=== PATIENT | female | born 1945 | race Caucasian/White ===

== ENCOUNTER 2020-04-11 17:44 | Emergency (ER) | payer MEDICARE, OTHER ==
[~2020-04-11] VITALS: Ht 160 cm; Wt 64.4 kg
[~2020-04-11 17:44] MED LIST: ACYC-202 PO; ALBU8.5H8 IH; ASPI-1265 PO; BACL10TA2 PO; CARSR60C PO; CARV-50 PO; CITA-311 PO; CLOP75TA15 PO; DEXA4TAB PO; ENTE0.5T4 PO; EZET10TA48 PO; GABA-532 PO; GABA300C PO; LEVO50TA PO; LORA-269 PO; NITR0.4T51 SL; OMEP20TA23 PO; ONDA4TAB6 PO; SULF1TAB48 PO
[2020-04-11 18:41] LABS: BASOPHILS % (AUTO) 0.1 % (0-1); EOSINOPHILS # (AUTO) 0.1 X10'3 (0-0.9); EOSINOPHILS % (AUTO) 0.6 % (0-6); HEMATOCRIT 34.2 % (35.0-45.0); HEMOGLOBIN 11.1 g/dl (12.0-16.0); LYMPHOCYTES # (AUTO) 1.5 X10'3 (1.1-4.8); LYMPHOCYTES % (AUTO) 17.3 % (21-51); MEAN CORPUSCULAR HEMOGLOBIN 28.8 PG (27.0-31.0); MEAN CORPUSCULAR HGB CONC 32.4 g/dL (33.0-36.5); MEAN CORPUSCULAR VOLUME 88.7 FL (78-98); MEAN PLATELET VOLUME 6.7 FL (7.4-10.4); MONOCYTES # (AUTO) 0.6 X10'3 (0-0.9); MONOCYTES % (AUTO) 7.1 % (2-12); NEUTROPHILS # (AUTO) 6.5 X10'3 (1.8-7.7); NEUTROPHILS % (AUTO) 74.9 % (42-75); PLATELET COUNT 252 X10'3 (140-440); RED BLOOD COUNT 3.85 X10'6 (4.20-5.60); RED CELL DISTRIBUTION WIDTH 17.1 % (11.5-14.5); WHITE BLOOD COUNT 8.7 X10'3 (4.5-11.0)
[2020-04-11 18:54] LABS: ALANINE AMINOTRANSFERASE 43 U/L (12-78); ALBUMIN 3.7 G/DL (3.4-5.0); ALBUMIN/GLOBULIN RATIO 1.1 (1.1-1.5); ALKALINE PHOSPHATASE 87 IU/L (46-116); ANION GAP 10 (8-16); ASPARTATE AMINO TRANSFERASE 16 U/L (10-37); BILIRUBIN,TOTAL 0.3 MG/DL (0.1-1.0); BLOOD UREA NITROGEN 54 MG/DL (7-18); BUN/CREATININE RATIO 33.5 (6.6-38.0); CALCIUM 8.9 MG/DL (8.5-10.1); CHLORIDE 101 MMOL/L (99-107); CREATININE 1.61 MG/DL (0.40-0.90); GLUCOSE 106 MG/DL (70-104); LIPASE 275 U/L (73-393); POTASSIUM 5.3 MMOL/L (3.5-5.1); SODIUM 137 MMOL/L (135-145); TOTAL CARBON DIOXIDE 25.6 MMOL/L (24-32); eGFR 31 ML/MIN
--- NOTE | 2020-04-11 19:24 | NUR ---
TO CT VIA [facility]
[2020-04-11] MEDS ORDERED: CIPR-259 PO (20:27)
[2020-04-11] MEDS ORDERED: METR-159 PO (20:27)
[2020-04-11 23:37] LABS: OCCULT BLOOD STOOL POSITIVE (Neg)
== END 2020-04-11 20:30 | disposition home or self-care (01) ==
LOC: ER 17:44 → MERGE 17:44 → ER 20:30
DX: K52.9 Noninfective gastroenteritis and colitis, unspecified (principal); E87.6 Hypokalemia; N18.9 Chronic kidney disease, unspecified; I25.10 Atherosclerotic heart disease of native coronary artery without angina pectoris; E78.00 Pure hypercholesterolemia, unspecified; I21.9 Acute myocardial infarction, unspecified; K21.9 Gastro-esophageal reflux disease without esophagitis; E07.9 Disorder of thyroid, unspecified; F41.9 Anxiety disorder, unspecified; F32.9 Major depressive disorder, single episode, unspecified; K57.90 Diverticulosis of intestine, part unspecified, without perforation or abscess without bleeding; Z98.890 Other specified postprocedural states; Z88.8 Allergy status to other drugs, medicaments and biological substances; Z79.899 Other long term (current) drug therapy; Z79.82 Long term (current) use of aspirin; Z79.1 Long term (current) use of non-steroidal anti-inflammatories (NSAID)
CPT/HCPCS: 36415; 74176; 80053; 82272; 83690; 85025; 99284

== ENCOUNTER 2020-04-16 11:47 | Inpatient (IN) | payer MEDICARE, OTHER ==
[~2020-04-16] VITALS: Ht 160 cm; Wt 64.5 kg
[~2020-04-16 11:47] MED LIST changes: +CIPR-259 PO; +METR-159 PO
[2020-04-16] MEDS ORDERED: CefTRIAXone/D5W-Rocephin 1gm 50 ML IV ONE (12:25)
[2020-04-16 12:39] LABS: BASOPHILS % (AUTO) 0.2 % (0-1); EOSINOPHILS % (AUTO) 0.4 % (0-6); HEMOGLOBIN 8.9 g/dl (12.0-16.0); LYMPHOCYTES # (AUTO) 1.9 X10'3 (1.1-4.8); LYMPHOCYTES % (AUTO) 20.9 % (21-51); MEAN CORPUSCULAR HEMOGLOBIN 29.3 PG (27.0-31.0); MEAN CORPUSCULAR HGB CONC 32.9 g/dL (33.0-36.5); MEAN CORPUSCULAR VOLUME 89.1 FL (78-98); MEAN PLATELET VOLUME 7.2 FL (7.4-10.4); MONOCYTES # (AUTO) 0.8 X10'3 (0-0.9); MONOCYTES % (AUTO) 8.4 % (2-12); NEUTROPHILS # (AUTO) 6.5 X10'3 (1.8-7.7); NEUTROPHILS % (AUTO) 70.1 % (42-75); PLATELET COUNT 161 X10'3 (140-440); RED BLOOD COUNT 3.03 X10'6 (4.20-5.60); RED CELL DISTRIBUTION WIDTH 18.5 % (11.5-14.5); WHITE BLOOD COUNT 9.3 X10'3 (4.5-11.0)
[2020-04-16 12:52] LABS: ALANINE AMINOTRANSFERASE 23 U/L (12-78); ALBUMIN 2.8 G/DL (3.4-5.0); ALBUMIN/GLOBULIN RATIO 0.9 (1.1-1.5); ALKALINE PHOSPHATASE 80 IU/L (46-116); ANION GAP 8 (8-16); ASPARTATE AMINO TRANSFERASE 14 U/L (10-37); BILIRUBIN,TOTAL 0.4 MG/DL (0.1-1.0); BLOOD UREA NITROGEN 23 MG/DL (7-18); BUN/CREATININE RATIO 13.9 (6.6-38.0); CHLORIDE 107 MMOL/L (99-107); CREATININE 1.66 MG/DL (0.40-0.90); GLUCOSE 99 MG/DL (70-104); LIPASE 212 U/L (73-393); POTASSIUM 4.2 MMOL/L (3.5-5.1); SODIUM 141 MMOL/L (135-145); TOTAL CARBON DIOXIDE 25.8 MMOL/L (24-32); TOTAL PROTEIN 5.9 G/DL (6.4-8.2); eGFR 30 ML/MIN
[2020-04-16] MEDS ORDERED: HYDROmorphone 1 mg/ml syringe IV ONE (13:05)
[2020-04-16] MEDS ORDERED: ondansetron/PF 4mg/2ml inj IV ONE (13:05)
[2020-04-16 13:21] LABS: CLARITY,URINE TURBID (Clear); COLOR,URINE STRAW (Yellow); GLUCOSE, URINE NEGATIVE (Neg); KETONES,URINE NEGATIVE (Neg); LEUKOCYTE ESTERASE ,URINE LARGE (Neg); NITRITES, URINE POSITIVE (Neg); OCCULT BLOOD,URINE MODERATE (Neg); PROTEIN,URINE TRACE mg/dl (Neg); UROBILINOGEN,URINE 0.2 E.U/dL (0.2-1.0)
[2020-04-16 13:25] LABS: UA COLLECTION TYPE STRAIGHT CATH
[2020-04-16 13:28] LABS: BACTERIA,URINE 4+ /HPF (Neg); SQUAMOUS EPITHELIAL CELL,UR FEW /LPF (FEW); WBC,URINE TNTC /HPF (0-4)
[2020-04-16 13:30] LABS: MUCUS STRANDS NONE SEEN /LPF (Neg); RENAL CELLS, URINE FEW /HPF; TRANSITIONAL EPI CELLS,URINE FEW /HPF
[2020-04-16 13:31] LABS: RBC,URINE 0-2 /HPF (0-2)
[2020-04-16] MEDS ORDERED: HYDROcodone/acetaminophen 5mg/325mg tablet PO PRN (14:25)
[2020-04-16] MEDS ORDERED: acetaminophen 325mg tablet PO PRN ×2 (14:25)
[2020-04-16] MEDS ORDERED: magnesium 2GM in 50ml NS 50 ML IV PRN (14:25)
[2020-04-16] MEDS ORDERED: potassium CL 10mEq/100ml bag 100 ML IV PRN ×2 (14:25)
[2020-04-16] MEDS ORDERED: magnesium 4gm in 100ml NS 100 ML IV PRN (14:25)
[2020-04-16] MEDS ORDERED: magnesium hydroxide 30ml (MOM) UD suspension PO PRN ×2 (14:25→15:35)
[2020-04-16] MEDS ORDERED: magnesium Cl slow-release 64mg tablet PO PRN (14:25)
[2020-04-16] MEDS ORDERED: potassium Cl 20 mEq SR tablet PO PRN ×2 (14:25)
[2020-04-16] MEDS ORDERED: mag hydrox/Alum hydrox/simeth 30ml oral suspension PO PRN (14:25)
[2020-04-16] MEDS ORDERED: LORA-269 PO (14:29)
[2020-04-16] MEDS ORDERED: ASPI-611 PO (14:29)
[2020-04-16] MEDS ORDERED: ALBU8.5H8 INH (14:29)
[2020-04-16] MEDS ORDERED: ERGO500056 PO (14:29)
[2020-04-16] MEDS ORDERED: ACYC400T PO (14:29)
[2020-04-16] MEDS ORDERED: BACDS PO (14:29)
[2020-04-16] MEDS ORDERED: ONDA8TAB13 PO (14:29)
[2020-04-16] MEDS ORDERED: FURO20TA4 PO (14:29)
[2020-04-16] MEDS ORDERED: DILT-35 PO (14:29)
[2020-04-16] MEDS ORDERED: OXAZ15CA3 PO (14:29)
[2020-04-16] MEDS ORDERED: [UNRECOGNIZED DRUG - CODE] PO (14:29)
[2020-04-16] MEDS ORDERED: GABA300C PO (14:29)
[2020-04-16] MEDS ORDERED: CITA10TA9 PO (14:29)
[2020-04-16] MEDS ORDERED: EPLE25TA4 PO (14:29)
[2020-04-16] MEDS ORDERED: CARV-50 PO (14:29)
[2020-04-16] MEDS ORDERED: ROSU20TA31 PO (14:29)
[2020-04-16] MEDS ORDERED: OMEP-50 PO (14:29)
[2020-04-16] MEDS ORDERED: LEVO50TA8 PO (14:29)
[2020-04-16] MEDS ORDERED: BACL-11 PO (14:29)
[2020-04-16] MEDS ORDERED: CLOP75TA35 PO (14:29)
[2020-04-16] MEDS ORDERED: NITR0.4T48 SL (14:29)
[2020-04-16] MEDS: normal saline 1000ml 1,000 ML IV SCH (15:34)
[2020-04-16] MEDS ORDERED: bisacodyl 10mg suppository rectal RC PRN (15:35)
[2020-04-16] MEDS ORDERED: OXAZEpam 15mg capsule PO PRN (15:40)
[2020-04-16] MEDS ORDERED: nitroGLYCERIN 0.4mg SUBLingual tab SL PRN (15:40)
[2020-04-16] MEDS ORDERED: LORazepam 1 MG tablet PO PRN (15:40)
[2020-04-16] MEDS ORDERED: albuterol 2.5 MG/3 ML nebule NEB PRN (15:40)
[2020-04-16 17:14] VITALS: BP 123/52
--- NOTE | 2020-04-16 17:15 | NUR ---
Patient arrived to the floor mad familiar with room at this time. Call light in reach and vitals taken. Patient doing well.
--- NOTE | 2020-04-16 18:00 | NUR ---
Patient in room [facility] 356. I have received report from Mark MORIN and had the opportunity to ask questions and assume patient care.
--- NOTE | 2020-04-16 18:51 | NUR ---
Problems reprioritized. Patient report given, questions answered & plan of care reviewed with Vanessa MORIN.
[2020-04-16] MEDS: HYDROmorphone inj. 0.5 MG/0.5 ML DISP.SYRIN IV PRN ×2 (18:52→23:34)
[2020-04-16 20:00] VITALS: BP 118/41
[2020-04-16] MEDS: K and/or MAG REPLACEMENT MC SCH (20:00)
[2020-04-16] MEDS: gabapentin 300mg capsule PO SCH (20:08)
[2020-04-16] MEDS: acyclovir 200 MG capsule PO SCH (20:08)
[2020-04-16] MEDS: docusate sod 100mg capsule PO SCH (20:09)
[2020-04-16] MEDS: heparin, porcine 5000 units/ml vial SQ SCH (20:09)
[2020-04-16] MEDS: carVEDilol 12.5mg tablet PO SCH (20:09)
[2020-04-17 00:38] VITALS: BP 127/50
[2020-04-17] MEDS: HYDROmorphone inj. 0.5 MG/0.5 ML DISP.SYRIN IV PRN ×4 (03:46→19:34)
[2020-04-17] MEDS: normal saline 1000ml 1,000 ML IV SCH ×3 (03:57→20:25)
[2020-04-17 05:11] LABS: BASOPHILS % (AUTO) 0.6 % (0-1); EOSINOPHILS # (AUTO) 0.1 X10'3 (0-0.9); HEMATOCRIT 25.9 % (35.0-45.0); HEMOGLOBIN 8.4 g/dl (12.0-16.0); LYMPHOCYTES % (AUTO) 18.9 % (21-51); MEAN CORPUSCULAR HEMOGLOBIN 29.1 PG (27.0-31.0); MEAN CORPUSCULAR HGB CONC 32.6 g/dL (33.0-36.5); MEAN CORPUSCULAR VOLUME 89.3 FL (78-98); MEAN PLATELET VOLUME 7.2 FL (7.4-10.4); MONOCYTES # (AUTO) 0.4 X10'3 (0-0.9); MONOCYTES % (AUTO) 8.7 % (2-12); NEUTROPHILS # (AUTO) 3.6 X10'3 (1.8-7.7); NEUTROPHILS % (AUTO) 70.8 % (42-75); PLATELET COUNT 141 X10'3 (140-440); RED CELL DISTRIBUTION WIDTH 18.3 % (11.5-14.5); WHITE BLOOD COUNT 5.1 X10'3 (4.5-11.0)
[2020-04-17 05:25] LABS: ALANINE AMINOTRANSFERASE 24 U/L (12-78); ALBUMIN 2.5 G/DL (3.4-5.0); ALBUMIN/GLOBULIN RATIO 0.9 (1.1-1.5); ALKALINE PHOSPHATASE 75 IU/L (46-116); ANION GAP 8 (8-16); ASPARTATE AMINO TRANSFERASE 13 U/L (10-37); BILIRUBIN,TOTAL 0.3 MG/DL (0.1-1.0); BLOOD UREA NITROGEN 18 MG/DL (7-18); BUN/CREATININE RATIO 12.7 (6.6-38.0); CALCIUM 8.1 MG/DL (8.5-10.1); CHLORIDE 108 MMOL/L (99-107); CREATININE 1.42 MG/DL (0.40-0.90); GLUCOSE 102 MG/DL (70-104); POTASSIUM 3.9 MMOL/L (3.5-5.1); SODIUM 142 MMOL/L (135-145); TOTAL CARBON DIOXIDE 26.2 MMOL/L (24-32); TOTAL PROTEIN 5.4 G/DL (6.4-8.2); eGFR 36 ML/MIN
--- NOTE | 2020-04-17 06:37 | NUR ---
Problems reprioritized. Patient report given, questions answered & plan of care reviewed with Judi MORIN.
--- NOTE | 2020-04-17 06:43 | NUR ---
Patient in room [facility] 356. I have received report from Vanessa MORIN and had the opportunity to ask questions and assume patient care.
[2020-04-17 07:30] VITALS: BP 102/44
[2020-04-17] MEDS: K and/or MAG REPLACEMENT MC SCH ×2 (08:00→19:47)
[2020-04-17] MEDS: CefTRIAXone/D5W-Rocephin 1gm 50 ML IV SCH (08:23)
[2020-04-17] MEDS: levoTHYROXINE 25mcg tablet PO SCH (08:24)
[2020-04-17] MEDS: pantoprazole 40mg Tablet.DR PO SCH (08:26)
[2020-04-17] MEDS: baclofen 10mg tablet PO SCH (08:26)
[2020-04-17] MEDS: gabapentin 300mg capsule PO SCH ×3 (08:26→22:08)
[2020-04-17] MEDS: clopidogrel 75mg tablet PO SCH (08:26)
[2020-04-17] MEDS: docusate sod 100mg capsule PO SCH ×2 (08:26→19:37)
[2020-04-17] MEDS: aspirin 81mg tab.chew PO SCH (08:27)
[2020-04-17] MEDS: CITALOpram 10mg tablet PO SCH (08:31)
[2020-04-17] MEDS: atorvastatin 20mg tablet PO SCH (08:31)
[2020-04-17] MEDS: diltiazem CD 120mg capsule (once-daily) PO SCH (08:32)
[2020-04-17] MEDS: sulfamethoxazole/trimethoprim DS (800/160mg) tablet PO SCH (08:32)
[2020-04-17] MEDS: carVEDilol 12.5mg tablet PO SCH ×2 (08:32→19:37)
[2020-04-17] MEDS: acyclovir 200 MG capsule PO SCH ×2 (08:33→19:37)
[2020-04-17] MEDS: furosemide 20MG tablet PO SCH (08:34)
[2020-04-17] MEDS: heparin, porcine 5000 units/ml vial SQ SCH ×2 (08:35→19:41)
[2020-04-17] MEDS: LAMIVUDINE PO SCH (10:02)
[2020-04-17 12:00] VITALS: BP 123/64
[2020-04-17] MEDS ORDERED: barium sulfate 450ml oral suspension PO ONE (12:35)
[2020-04-17 18:00] VITALS: BP 111/90
--- NOTE | 2020-04-17 18:30 | NUR ---
Patient in room [facility] 356. I have received report from ASHA MORIN and had the opportunity to ask questions and assume patient care.
[2020-04-17] MEDS: HYDROcodone/acetaminophen 10/325mg tab PO PRN (18:44)
[2020-04-17] MEDS ORDERED: barium sulfate 450ml oral suspension PO SCH (21:00)
[2020-04-17] MEDS: ondansetron/PF 4mg/2ml inj IV PRN (22:06)
[2020-04-18] VITALS: BP 109/56
[2020-04-18] MEDS: normal saline 1000ml 1,000 ML IV SCH ×2 (01:55→14:05)
[2020-04-18 05:20] LABS: ALANINE AMINOTRANSFERASE 27 U/L (12-78); ALBUMIN 2.5 G/DL (3.4-5.0); ALBUMIN/GLOBULIN RATIO 0.9 (1.1-1.5); ALKALINE PHOSPHATASE 79 IU/L (46-116); ANION GAP 8 (8-16); ASPARTATE AMINO TRANSFERASE 15 U/L (10-37); BILIRUBIN,TOTAL 0.2 MG/DL (0.1-1.0); BLOOD UREA NITROGEN 19 MG/DL (7-18); BUN/CREATININE RATIO 12.7 (6.6-38.0); CALCIUM 7.6 MG/DL (8.5-10.1); CHLORIDE 105 MMOL/L (99-107); GLUCOSE 105 MG/DL (70-104); MAGNESIUM 1.7 MG/DL (1.5-2.4); SODIUM 137 MMOL/L (135-145); TOTAL CARBON DIOXIDE 23.8 MMOL/L (24-32); TOTAL PROTEIN 5.4 G/DL (6.4-8.2); eGFR 34 ML/MIN
[2020-04-18 05:29] LABS: BASOPHILS % (AUTO) 0.4 % (0-1); EOSINOPHILS % (AUTO) 0.7 % (0-6); HEMATOCRIT 25.9 % (35.0-45.0); HEMOGLOBIN 8.6 g/dl (12.0-16.0); LYMPHOCYTES # (AUTO) 0.7 X10'3 (1.1-4.8); LYMPHOCYTES % (AUTO) 16.9 % (21-51); MEAN CORPUSCULAR HEMOGLOBIN 29.7 PG (27.0-31.0); MEAN CORPUSCULAR HGB CONC 33.1 g/dL (33.0-36.5); MEAN CORPUSCULAR VOLUME 89.8 FL (78-98); MEAN PLATELET VOLUME 7.2 FL (7.4-10.4); MONOCYTES # (AUTO) 0.4 X10'3 (0-0.9); MONOCYTES % (AUTO) 10.2 % (2-12); NEUTROPHILS # (AUTO) 2.8 X10'3 (1.8-7.7); NEUTROPHILS % (AUTO) 71.8 % (42-75); PLATELET COUNT 134 X10'3 (140-440); RED BLOOD COUNT 2.88 X10'6 (4.20-5.60); RED CELL DISTRIBUTION WIDTH 18.6 % (11.5-14.5); WHITE BLOOD COUNT 3.9 X10'3 (4.5-11.0)
--- NOTE | 2020-04-18 06:30 | NUR ---
Problems reprioritized. Patient report given, questions answered & plan of care reviewed with ASHA MORIN.
[2020-04-18 06:41] LABS: ANISOCYTOSIS 2+; PLATELET ESTIMATE DECREASED
--- NOTE | 2020-04-18 06:48 | NUR ---
Patient in room [facility] 356. I have received report from Zainab Lamb RN and had the opportunity to ask questions and assume patient care.
[2020-04-18] MEDS ORDERED: barium sulfate 450ml oral suspension PO ONE (07:00)
[2020-04-18] MEDS: CefTRIAXone/D5W-Rocephin 1gm 50 ML IV SCH (07:32)
[2020-04-18] MEDS: levoTHYROXINE 25mcg tablet PO SCH (07:32)
[2020-04-18 08:00] VITALS: BP 127/63
[2020-04-18] MEDS: heparin, porcine 5000 units/ml vial SQ SCH ×2 (08:00→20:39)
[2020-04-18] MEDS: K and/or MAG REPLACEMENT MC SCH ×2 (08:00→20:00)
[2020-04-18] MEDS: LAMIVUDINE PO SCH (08:34)
[2020-04-18] MEDS: docusate sod 100mg capsule PO SCH ×2 (08:34→20:38)
[2020-04-18] MEDS: atorvastatin 20mg tablet PO SCH (08:34)
[2020-04-18] MEDS: gabapentin 300mg capsule PO SCH ×3 (08:34→20:38)
[2020-04-18] MEDS: CITALOpram 10mg tablet PO SCH (08:34)
[2020-04-18] MEDS: pantoprazole 40mg Tablet.DR PO SCH (08:35)
[2020-04-18] MEDS: baclofen 10mg tablet PO SCH (08:35)
[2020-04-18] MEDS: acyclovir 200 MG capsule PO SCH ×2 (08:35→20:38)
[2020-04-18] MEDS: aspirin 81mg tab.chew PO SCH (08:35)
[2020-04-18] MEDS: clopidogrel 75mg tablet PO SCH (08:35)
[2020-04-18] MEDS: furosemide 20MG tablet PO SCH (08:36)
[2020-04-18] MEDS: diltiazem CD 120mg capsule (once-daily) PO SCH (08:36)
[2020-04-18] MEDS: carVEDilol 12.5mg tablet PO SCH ×2 (08:36→20:38)
[2020-04-18] MEDS: ondansetron/PF 4mg/2ml inj IV PRN (08:37)
[2020-04-18] MEDS: HYDROmorphone inj. 0.5 MG/0.5 ML DISP.SYRIN IV PRN ×3 (08:39→20:36)
[2020-04-18] MEDS ORDERED: barium sulfate 450ml oral suspension PO PRN (09:00)
[2020-04-18 12:00] VITALS: BP 108/38
--- NOTE | 2020-04-18 12:51 | NUR ---
PAGER ID: [phone] MESSAGE: Livia Tayloru [id number] - FYI- Pt's Cat scan results are available. Thank you. Judi [phone]
[2020-04-18] MEDS: metroNIDAZOLE-Flagyl 500mg/NS 100 ML IV SCH ×2 (13:54→16:48)
--- NOTE | 2020-04-18 18:36 | NUR ---
Problems reprioritized. Patient report given, questions answered & plan of care reviewed with Zainab Lamb RN.
--- NOTE | 2020-04-18 18:40 | NUR ---
Patient in room [facility] 356. I have received report from ASHA MORIN and had the opportunity to ask questions and assume patient care.
[2020-04-18 20:00] VITALS: BP 145/63
[2020-04-19] VITALS: BP 124/59
[2020-04-19] MEDS: metroNIDAZOLE-Flagyl 500mg/NS 100 ML IV SCH ×2 (00:23→10:24)
[2020-04-19] MEDS: HYDROcodone/acetaminophen 10/325mg tab PO PRN (00:26)
[2020-04-19] MEDS: normal saline 1000ml 1,000 ML IV SCH ×2 (03:33→12:25)
[2020-04-19 05:39] LABS: BASOPHILS % (AUTO) 0.3 % (0-1); EOSINOPHILS % (AUTO) 1.7 % (0-6); HEMATOCRIT 23.7 % (35.0-45.0); HEMOGLOBIN 7.8 g/dl (12.0-16.0); LYMPHOCYTES # (AUTO) 0.6 X10'3 (1.1-4.8); LYMPHOCYTES % (AUTO) 26.7 % (21-51); MEAN CORPUSCULAR HEMOGLOBIN 29.3 PG (27.0-31.0); MEAN CORPUSCULAR HGB CONC 32.9 g/dL (33.0-36.5); MEAN CORPUSCULAR VOLUME 89.2 FL (78-98); MEAN PLATELET VOLUME 7.2 FL (7.4-10.4); MONOCYTES # (AUTO) 0.3 X10'3 (0-0.9); MONOCYTES % (AUTO) 13.6 % (2-12); NEUTROPHILS # (AUTO) 1.3 X10'3 (1.8-7.7); NEUTROPHILS % (AUTO) 57.7 % (42-75); PLATELET COUNT 112 X10'3 (140-440); RED BLOOD COUNT 2.66 X10'6 (4.20-5.60); RED CELL DISTRIBUTION WIDTH 18.2 % (11.5-14.5); WHITE BLOOD COUNT 2.3 X10'3 (4.5-11.0)
[2020-04-19 05:47] LABS: ALANINE AMINOTRANSFERASE 25 U/L (12-78); ALBUMIN 2.3 G/DL (3.4-5.0); ALBUMIN/GLOBULIN RATIO 0.8 (1.1-1.5); ALKALINE PHOSPHATASE 74 IU/L (46-116); ANION GAP 7 (8-16); ASPARTATE AMINO TRANSFERASE 12 U/L (10-37); BILIRUBIN,TOTAL 0.2 MG/DL (0.1-1.0); BLOOD UREA NITROGEN 14 MG/DL (7-18); BUN/CREATININE RATIO 9.7 (6.6-38.0); CHLORIDE 112 MMOL/L (99-107); CREATININE 1.45 MG/DL (0.40-0.90); GLUCOSE 98 MG/DL (70-104); MAGNESIUM 1.7 MG/DL (1.5-2.4); SODIUM 145 MMOL/L (135-145); TOTAL CARBON DIOXIDE 26.4 MMOL/L (24-32); TOTAL PROTEIN 5.1 G/DL (6.4-8.2); eGFR 35 ML/MIN
[2020-04-19 06:31] LABS: PLATELET ESTIMATE DECREASED; TOTAL CELLS COUNTED 100
[2020-04-19 06:32] LABS: ANISOCYTOSIS 2+; POIKILOCYTOSIS FEW
--- NOTE | 2020-04-19 06:33 | NUR ---
Problems reprioritized. Patient report given, questions answered & plan of care reviewed with HESHAM MORIN.
[2020-04-19 07:45] VITALS: BP 127/61
[2020-04-19] MEDS: furosemide 20MG tablet PO SCH (08:00)
[2020-04-19] MEDS: K and/or MAG REPLACEMENT MC SCH (08:00)
[2020-04-19] MEDS: CefTRIAXone/D5W-Rocephin 1gm 50 ML IV SCH (09:11)
[2020-04-19] MEDS ORDERED: CEFD300C3 PO (10:16)
[2020-04-19] MEDS ORDERED: METR500T PO (10:16)
[2020-04-19] MEDS: gabapentin 300mg capsule PO SCH ×2 (10:20→13:02)
[2020-04-19] MEDS: aspirin 81mg tab.chew PO SCH (10:20)
[2020-04-19] MEDS: sulfamethoxazole/trimethoprim DS (800/160mg) tablet PO SCH (10:20)
[2020-04-19] MEDS: carVEDilol 12.5mg tablet PO SCH (10:20)
[2020-04-19] MEDS: CITALOpram 10mg tablet PO SCH (10:20)
[2020-04-19] MEDS: levoTHYROXINE 25mcg tablet PO SCH (10:21)
[2020-04-19] MEDS: docusate sod 100mg capsule PO SCH (10:21)
[2020-04-19] MEDS: pantoprazole 40mg Tablet.DR PO SCH (10:21)
[2020-04-19] MEDS: atorvastatin 20mg tablet PO SCH (10:22)
[2020-04-19] MEDS: diltiazem CD 120mg capsule (once-daily) PO SCH (10:22)
[2020-04-19] MEDS: acyclovir 200 MG capsule PO SCH (10:23)
[2020-04-19] MEDS: baclofen 10mg tablet PO SCH (10:23)
[2020-04-19] MEDS: clopidogrel 75mg tablet PO SCH (10:23)
[2020-04-19] MEDS: heparin, porcine 5000 units/ml vial SQ SCH (10:24)
[2020-04-19] MEDS: LAMIVUDINE PO SCH (10:24)
[2020-04-19 12:06] VITALS: BP 121/42
--- NOTE | 2020-04-19 12:39 | NUR ---
Pt. states she has an allergy to shellfish. States anaphylaxis previously. Nothing noted in chart- only an iodine allergy. Pt. served lori palafox for lunch. Charge made aware. paged. Will closely monitor pt. for any ASE.
[2020-04-19] MEDS ORDERED: diphenhydrAMINE 25mg capsule PO ONE (12:50)
[2020-04-19 13:45] VITALS: BP 110/49
--- NOTE | 2020-04-19 14:06 | NUR ---
Nutrition consult re: "diverticulosis and diverticulitis education." Pt seen at bedside for written and verbal nutrition therapy educations with a list of fiber content in foods. Pt participated in education and expressed understanding. During education pt reported that she wasn't feeling well, RD informed RN who assessed pt at bedside. NELLI contact information was provided to pt and pt encouraged to reach out for any additional questions. Will remain available. Addendum: 04/19/20 at [address] Amended: Links added.
--- NOTE | 2020-04-19 16:10 | NUR ---
Reviewed discharge paperwork and medications with pt. IV DC'd and bandage applied. No s/sx bleeding noted. Pt. gathered her belongings to take with her. Was picked up by her in a private vehicle to go home. Written education provided on UTIs, diverticulitis and diverticulosis.
== END 2020-04-19 16:10 | disposition home health service (06) | DRG 690 ==
LOC: ER 11:47 → ED HOLD 14:25 → EDBEDREQTM 14:42 → EDBEDREQ 16:22 → SUR 3N 17:07
PROVIDERS: ADMIT Family Medicine; ATTEND Family Medicine
DX: N39.0 Urinary tract infection, site not specified (principal); K57.32 Diverticulitis of large intestine without perforation or abscess without bleeding; E85.9 Amyloidosis, unspecified; I12.9 Hypertensive chronic kidney disease with stage 1 through stage 4 chronic kidney disease, or unspecified chronic kidney disease; N18.30 Chronic kidney disease, stage 3 unspecified; F32.9 Major depressive disorder, single episode, unspecified; F41.9 Anxiety disorder, unspecified; K21.9 Gastro-esophageal reflux disease without esophagitis; K44.9 Diaphragmatic hernia without obstruction or gangrene; M10.9 Gout, unspecified; B96.20 Unspecified Escherichia coli [E. coli] as the cause of diseases classified elsewhere; D63.8 Anemia in other chronic diseases classified elsewhere; E78.00 Pure hypercholesterolemia, unspecified; E78.5 Hyperlipidemia, unspecified; I25.10 Atherosclerotic heart disease of native coronary artery without angina pectoris; J45.909 Unspecified asthma, uncomplicated; Z80.3 Family history of malignant neoplasm of breast; Z85.528 Personal history of other malignant neoplasm of kidney; I25.2 Old myocardial infarction; Z85.858 Personal history of malignant neoplasm of other endocrine glands; Z90.5 Acquired absence of kidney; Z90.710 Acquired absence of both cervix and uterus; Z88.8 Allergy status to other drugs, medicaments and biological substances; Z80.1 Family history of malignant neoplasm of trachea, bronchus and lung; Z82.49 Family history of ischemic heart disease and other diseases of the circulatory system; Z87.891 Personal history of nicotine dependence
CPT/HCPCS: 36415; 74176; 80053; 81001; 83690; 83735; 84443; 85007; 85008; 85025; 87077; 87081; 87088; 87186; 94760; 96365; 96375; 97161; 97530; 99285; G0378; J0696; J1170; J1644; J2405; J3490; J7030; Q0163

== ENCOUNTER 2020-05-29 18:43 | Emergency (ER) | payer MEDICARE, OTHER ==
[~2020-05-29] VITALS: Ht 160 cm; Wt 64.1 kg
[~2020-05-29 18:43] MED LIST changes: -ACYC-202 PO; +ACYC400T PO; -ALBU8.5H8 IH; +ALBU8.5H8 INH; -ASPI-1265 PO; +ASPI-611 PO; +BACDS PO; +BACL-11 PO; -BACL10TA2 PO; -CARSR60C PO; -CIPR-259 PO; -CITA-311 PO; +CITA10TA9 PO; -CLOP75TA15 PO; +CLOP75TA35 PO; -DEXA4TAB PO; +DILT-35 PO; -ENTE0.5T4 PO; +EPLE25TA4 PO; +ERGO500056 PO; -EZET10TA48 PO; +FURO20TA4 PO; -GABA-532 PO; -LEVO50TA PO; +LEVO50TA8 PO; -METR-159 PO; +NITR0.4T48 SL; -NITR0.4T51 SL; +OMEP-50 PO; -OMEP20TA23 PO; -ONDA4TAB6 PO; +ONDA8TAB13 PO; +OXAZ15CA3 PO; +ROSU20TA31 PO; -SULF1TAB48 PO; +[UNRECOGNIZED DRUG - CODE] PO
[2020-05-29 19:36] LABS: BASOPHILS % (AUTO) 0.3 % (0-1); EOSINOPHILS # (AUTO) 0.2 X10'3 (0-0.9); EOSINOPHILS % (AUTO) 3.1 % (0-6); HEMOGLOBIN 10.9 g/dl (12.0-16.0); LYMPHOCYTES # (AUTO) 2.1 X10'3 (1.1-4.8); LYMPHOCYTES % (AUTO) 25.8 % (21-51); MEAN CORPUSCULAR HEMOGLOBIN 29.9 PG (27.0-31.0); MEAN CORPUSCULAR HGB CONC 33.1 g/dL (33.0-36.5); MEAN CORPUSCULAR VOLUME 90.4 FL (78-98); MEAN PLATELET VOLUME 6.8 FL (7.4-10.4); MONOCYTES # (AUTO) 0.5 X10'3 (0-0.9); MONOCYTES % (AUTO) 5.9 % (2-12); NEUTROPHILS # (AUTO) 5.2 X10'3 (1.8-7.7); NEUTROPHILS % (AUTO) 64.9 % (42-75); PLATELET COUNT 224 X10'3 (140-440); RED BLOOD COUNT 3.65 X10'6 (4.20-5.60); RED CELL DISTRIBUTION WIDTH 17.8 % (11.5-14.5)
[2020-05-29 19:46] LABS: D-DIMER 0.43 MG/L FEU (0-0.50)
[2020-05-29 20:16] LABS: ALANINE AMINOTRANSFERASE 34 U/L (12-78); ALBUMIN 3.7 G/DL (3.4-5.0); ALBUMIN/GLOBULIN RATIO 1.1 (1.1-1.5); ALKALINE PHOSPHATASE 100 IU/L (46-116); ANION GAP 12 (8-16); ASPARTATE AMINO TRANSFERASE 18 U/L (10-37); BILIRUBIN,TOTAL 0.3 MG/DL (0.1-1.0); BLOOD UREA NITROGEN 30 MG/DL (7-18); BUN/CREATININE RATIO 13.9 (6.6-38.0); CALCIUM 8.9 MG/DL (8.5-10.1); CHLORIDE 105 MMOL/L (99-107); CREATININE 2.16 MG/DL (0.40-0.90); GLUCOSE 129 MG/DL (70-104); POTASSIUM 4.7 MMOL/L (3.5-5.1); SODIUM 141 MMOL/L (135-145); TOTAL CARBON DIOXIDE 23.9 MMOL/L (24-32); eGFR 22 ML/MIN
[2020-05-29] MEDS ORDERED: normal saline 1000ML IV soln IVB ONE (20:30)
[2020-05-29] MEDS ORDERED: ipratropium/albuterol 3ml nebule NEB ONE (20:35)
[2020-05-29] MEDS ORDERED: methylPREDNISolone sod succ 125mg/2ml vial IV ONE (20:35)
[2020-05-29] MEDS ORDERED: AMOX-422 PO (21:57)
[2020-05-29] MEDS ORDERED: PRED20TA PO (21:57)
[2020-05-29] MEDS ORDERED: ALBU6.7H9 INH (21:57)
[2020-05-29 23:20] VITALS: BP 132/63
== END 2020-05-29 22:30 | disposition home or self-care (01) ==
LOC: ER 18:44
DX: J40 Bronchitis, not specified as acute or chronic (principal); N18.9 Chronic kidney disease, unspecified; E86.0 Dehydration; I25.10 Atherosclerotic heart disease of native coronary artery without angina pectoris; E78.00 Pure hypercholesterolemia, unspecified; I25.2 Old myocardial infarction; K21.9 Gastro-esophageal reflux disease without esophagitis; F41.9 Anxiety disorder, unspecified; F32.9 Major depressive disorder, single episode, unspecified; M10.9 Gout, unspecified; Z88.8 Allergy status to other drugs, medicaments and biological substances; Z91.013 Allergy to seafood; Z88.6 Allergy status to analgesic agent; Z79.82 Long term (current) use of aspirin; Z79.899 Other long term (current) drug therapy
CPT/HCPCS: 36415; 71045; 80053; 83880; 84484; 85025; 85379; 87502; 87503; 93005; 93971; 94640; 96361; 96374; 99285; J2930; J7030; 94760

== ENCOUNTER 2020-08-25 19:03 | Emergency (ER) | payer MEDICARE, OTHER ==
[~2020-08-25] VITALS: Ht 160 cm; Wt 63.6 kg
[~2020-08-25 19:03] MED LIST changes: +ALBU6.7H9 INH; -BACDS PO; +CLOP75TA34 PO; -CLOP75TA35 PO; +SULF1TAB45 PO
[2020-08-25 21:29] LABS: BASOPHILS % (AUTO) 0.2 % (0-1); EOSINOPHILS # (AUTO) 0.1 X10'3 (0-0.9); EOSINOPHILS % (AUTO) 1.8 % (0-6); HEMATOCRIT 35.2 % (35.0-45.0); HEMOGLOBIN 11.6 g/dl (12.0-16.0); LYMPHOCYTES # (AUTO) 2.8 X10'3 (1.1-4.8); LYMPHOCYTES % (AUTO) 40.3 % (21-51); MEAN CORPUSCULAR HEMOGLOBIN 29.3 PG (27.0-31.0); MEAN CORPUSCULAR HGB CONC 32.9 g/dL (33.0-36.5); MEAN CORPUSCULAR VOLUME 88.9 FL (78-98); MEAN PLATELET VOLUME 6.9 FL (7.4-10.4); MONOCYTES # (AUTO) 0.5 X10'3 (0-0.9); MONOCYTES % (AUTO) 6.7 % (2-12); NEUTROPHILS # (AUTO) 3.5 X10'3 (1.8-7.7); PLATELET COUNT 192 X10'3 (140-440); RED BLOOD COUNT 3.95 X10'6 (4.20-5.60); RED CELL DISTRIBUTION WIDTH 15.1 % (11.5-14.5); WHITE BLOOD COUNT 6.9 X10'3 (4.5-11.0)
[2020-08-25 21:52] LABS: ALANINE AMINOTRANSFERASE 30 U/L (12-78); ALBUMIN 3.9 G/DL (3.4-5.0); ALBUMIN/GLOBULIN RATIO 1.3 (1.1-1.5); ALKALINE PHOSPHATASE 99 IU/L (46-116); ANION GAP 13 (8-16); ASPARTATE AMINO TRANSFERASE 17 U/L (10-37); BILIRUBIN,TOTAL 0.2 MG/DL (0.1-1.0); BLOOD UREA NITROGEN 39 MG/DL (7-18); CALCIUM 9.5 MG/DL (8.5-10.1); CHLORIDE 103 MMOL/L (99-107); CREATININE 1.86 MG/DL (0.40-0.90); GLUCOSE 102 MG/DL (70-104); POTASSIUM 4.4 MMOL/L (3.5-5.1); SODIUM 141 MMOL/L (135-145); TOTAL CARBON DIOXIDE 24.6 MMOL/L (24-32); TOTAL PROTEIN 6.8 G/DL (6.4-8.2); eGFR 27 ML/MIN
[2020-08-25 22:08] VITALS: BP 149/72
== END 2020-08-25 22:10 | disposition home or self-care (01) ==
LOC: ER 19:04
DX: S90.32XA Contusion of left foot, initial encounter (principal); I25.10 Atherosclerotic heart disease of native coronary artery without angina pectoris; N18.9 Chronic kidney disease, unspecified; I25.2 Old myocardial infarction; E78.00 Pure hypercholesterolemia, unspecified; K21.9 Gastro-esophageal reflux disease without esophagitis; Z85.9 Personal history of malignant neoplasm, unspecified; Z79.82 Long term (current) use of aspirin; Z79.899 Other long term (current) drug therapy; Z91.013 Allergy to seafood; Z91.041 Radiographic dye allergy status; Z88.8 Allergy status to other drugs, medicaments and biological substances; X58.XXXA Exposure to other specified factors, initial encounter; Y93.89 Activity, other specified; Y92.096 Garden or yard of other non-institutional residence as the place of occurrence of the external cause; Y99.8 Other external cause status
CPT/HCPCS: 36415; 73630; 80053; 85025; 99284

== ENCOUNTER 2020-10-16 16:49 | Emergency (ER) | payer MEDICARE, OTHER ==
[~2020-10-16] VITALS: Ht 160 cm; Wt 64.5 kg
[~2020-10-16 16:49] MED LIST changes: +ACYC-126 PO; -ACYC400T PO
[2020-10-16 17:39] VITALS: BP 133/60
[2020-10-16] MEDS ORDERED: normal saline 1000ML IV soln IVB ONE (18:20)
--- NOTE | 2020-10-16 18:24 | NUR ---
[id number]
[2020-10-16 18:50] LABS: BASOPHILS % (AUTO) 0.1 % (0-1); EOSINOPHILS % (AUTO) 0.1 % (0-6); HEMATOCRIT 40.5 % (35.0-45.0); HEMOGLOBIN 13.3 g/dl (12.0-16.0); LYMPHOCYTES # (AUTO) 1.6 X10'3 (1.1-4.8); LYMPHOCYTES % (AUTO) 20.3 % (21-51); MEAN CORPUSCULAR HEMOGLOBIN 29.3 PG (27.0-31.0); MEAN CORPUSCULAR HGB CONC 32.8 g/dL (33.0-36.5); MEAN CORPUSCULAR VOLUME 89.4 FL (78-98); MONOCYTES # (AUTO) 0.3 X10'3 (0-0.9); MONOCYTES % (AUTO) 4.1 % (2-12); NEUTROPHILS # (AUTO) 5.9 X10'3 (1.8-7.7); NEUTROPHILS % (AUTO) 75.4 % (42-75); PLATELET COUNT 211 X10'3 (140-440); RED BLOOD COUNT 4.53 X10'6 (4.20-5.60); RED CELL DISTRIBUTION WIDTH 15.3 % (11.5-14.5); WHITE BLOOD COUNT 7.9 X10'3 (4.5-11.0)
[2020-10-16 18:56] LABS: PARTIAL THROMBOPLASTIN TIME 24 SECONDS (22-32)
[2020-10-16 18:58] LABS: ALANINE AMINOTRANSFERASE 44 U/L (12-78); ALBUMIN 4.1 G/DL (3.4-5.0); ALBUMIN/GLOBULIN RATIO 1.3 (1.1-1.5); ALKALINE PHOSPHATASE 95 IU/L (46-116); ANION GAP 14 (8-16); ASPARTATE AMINO TRANSFERASE 21 U/L (10-37); BILIRUBIN,TOTAL 0.3 MG/DL (0.1-1.0); BLOOD UREA NITROGEN 60 MG/DL (7-18); BUN/CREATININE RATIO 32.3 (6.6-38.0); CALCIUM 9.2 MG/DL (8.5-10.1); CHLORIDE 107 MMOL/L (99-107); CREATININE 1.86 MG/DL (0.40-0.90); GLUCOSE 122 MG/DL (70-104); POTASSIUM 4.6 MMOL/L (3.5-5.1); SODIUM 143 MMOL/L (135-145); TOTAL CARBON DIOXIDE 21.8 MMOL/L (24-32); TOTAL PROTEIN 7.3 G/DL (6.4-8.2); eGFR 27 ML/MIN
[2020-10-16 19:02] LABS: ETHANOL < 0.010 GM/DL (0.0-0.010); LIPASE 302 U/L (73-393); TROPONIN I < 0.04 NG/ML (0.0-0.05)
[2020-10-16 19:23] LABS: CLARITY,URINE CLEAR (Clear); COLOR,URINE YELLOW (Yellow); GLUCOSE, URINE NEGATIVE (Neg); KETONES,URINE NEGATIVE (Neg); LEUKOCYTE ESTERASE ,URINE TRACE (Neg); NITRITES, URINE NEGATIVE (Neg); OCCULT BLOOD,URINE NEGATIVE (Neg); PH,URINE 5.5 (4.8-8.0); PROTEIN,URINE NEGATIVE (Neg); UROBILINOGEN,URINE 0.2 E.U/dL (0.2-1.0)
[2020-10-16 19:37] LABS: URINE AMPHETAMINE SCREEN NEGATIVE (Neg); URINE BARBITUATE SCREEN NEGATIVE (Neg); URINE BENZODIAZEPINES SCREEN NEGATIVE (Neg); URINE CANNABINOID SCREEN NEGATIVE (Neg); URINE COCAINE SCREEN NEGATIVE (Neg); URINE METHADONE SCREEN NEGATIVE (Neg); URINE OPIATE SCREEN NEGATIVE (Neg); URINE PHENCYCLIDINE SCREEN NEGATIVE (Neg)
[2020-10-16 19:43] LABS: UA COLLECTION TYPE CLN CATCH MIDSTREAM
[2020-10-16 19:45] LABS: BACTERIA,URINE NONE SEEN /HPF (Neg); RBC,URINE NONE SEEN /HPF (0-2); RENAL CELLS, URINE FEW /HPF; SQUAMOUS EPITHELIAL CELL,UR FEW /LPF (FEW); WBC CLUMPS,URINE FEW /HPF (NEGATIVE); WBC,URINE 0-4 /HPF (0-4)
== END 2020-10-16 20:24 | disposition home or self-care (01) ==
LOC: ER 16:50
DX: S09.90XA Unspecified injury of head, initial encounter (principal); S80.12XA Contusion of left lower leg, initial encounter; I25.10 Atherosclerotic heart disease of native coronary artery without angina pectoris; E78.00 Pure hypercholesterolemia, unspecified; I25.2 Old myocardial infarction; K21.9 Gastro-esophageal reflux disease without esophagitis; N18.9 Chronic kidney disease, unspecified; M10.9 Gout, unspecified; F32.9 Major depressive disorder, single episode, unspecified; Z85.9 Personal history of malignant neoplasm, unspecified; Z98.890 Other specified postprocedural states; Z91.013 Allergy to seafood; Z88.8 Allergy status to other drugs, medicaments and biological substances; Z79.2 Long term (current) use of antibiotics; Z79.82 Long term (current) use of aspirin; Z79.899 Other long term (current) drug therapy; W19.XXXA Unspecified fall, initial encounter; Y93.89 Activity, other specified; Y92.89 Other specified places as the place of occurrence of the external cause; Y99.8 Other external cause status
CPT/HCPCS: 36415; 70450; 71045; 73590; 73610; 73630; 80053; 80305; 80320; 81001; 82140; 83690; 84484; 85025; 85610; 85730; 87088; 93005; 99285; J7030

== ENCOUNTER 2020-10-17 15:23 | Emergency (ER) | payer MEDICARE, OTHER ==
[~2020-10-17] VITALS: Ht 160 cm; Wt 62.8 kg
[2020-10-17 16:22] LABS: BASOPHILS % (AUTO) 0.1 % (0-1); EOSINOPHILS % (AUTO) 0.1 % (0-6); HEMATOCRIT 41.1 % (35.0-45.0); HEMOGLOBIN 13.3 g/dl (12.0-16.0); LYMPHOCYTES # (AUTO) 1.3 X10'3 (1.1-4.8); LYMPHOCYTES % (AUTO) 11.7 % (21-51); MEAN CORPUSCULAR HEMOGLOBIN 28.9 PG (27.0-31.0); MEAN CORPUSCULAR HGB CONC 32.3 g/dL (33.0-36.5); MEAN CORPUSCULAR VOLUME 89.4 FL (78-98); MEAN PLATELET VOLUME 6.9 FL (7.4-10.4); MONOCYTES # (AUTO) 0.3 X10'3 (0-0.9); MONOCYTES % (AUTO) 2.4 % (2-12); NEUTROPHILS # (AUTO) 9.7 X10'3 (1.8-7.7); NEUTROPHILS % (AUTO) 85.7 % (42-75); PLATELET COUNT 193 X10'3 (140-440); RED CELL DISTRIBUTION WIDTH 15.5 % (11.5-14.5); WHITE BLOOD COUNT 11.3 X10'3 (4.5-11.0)
[2020-10-17 16:40] LABS: ALANINE AMINOTRANSFERASE 41 U/L (12-78); ALBUMIN/GLOBULIN RATIO 1.3 (1.1-1.5); ALKALINE PHOSPHATASE 91 IU/L (46-116); ANION GAP 11 (8-16); ASPARTATE AMINO TRANSFERASE 19 U/L (10-37); BILIRUBIN,TOTAL 0.3 MG/DL (0.1-1.0); BLOOD UREA NITROGEN 45 MG/DL (7-18); BUN/CREATININE RATIO 27.4 (6.6-38.0); CALCIUM 9.3 MG/DL (8.5-10.1); CHLORIDE 106 MMOL/L (99-107); CREATININE 1.64 MG/DL (0.40-0.90); GLUCOSE 137 MG/DL (70-104); POTASSIUM 5.4 MMOL/L (3.5-5.1); SODIUM 141 MMOL/L (135-145); TOTAL CARBON DIOXIDE 23.6 MMOL/L (24-32); TOTAL PROTEIN 7.2 G/DL (6.4-8.2); eGFR 31 ML/MIN
[2020-10-17 19:17] VITALS: BP 136/76
== END 2020-10-17 19:19 | disposition home or self-care (01) ==
LOC: ER 15:24
DX: J18.9 Pneumonia, unspecified organism (principal); R04.2 Hemoptysis; K92.1 Melena; K92.0 Hematemesis; R53.83 Other fatigue; R53.1 Weakness; I25.10 Atherosclerotic heart disease of native coronary artery without angina pectoris; I25.2 Old myocardial infarction; E78.00 Pure hypercholesterolemia, unspecified; K21.9 Gastro-esophageal reflux disease without esophagitis; N18.9 Chronic kidney disease, unspecified; M10.9 Gout, unspecified; F41.9 Anxiety disorder, unspecified; F32.9 Major depressive disorder, single episode, unspecified; Z85.9 Personal history of malignant neoplasm, unspecified; Z98.890 Other specified postprocedural states; Z91.013 Allergy to seafood; Z88.8 Allergy status to other drugs, medicaments and biological substances; Z79.2 Long term (current) use of antibiotics; Z79.82 Long term (current) use of aspirin; Z79.899 Other long term (current) drug therapy
CPT/HCPCS: 36415; 71250; 74176; 80053; 85025; 99284

== ENCOUNTER 2020-12-22 12:19 | Observation (INO) | payer MEDICARE, OTHER ==
[~2020-12-22] VITALS: Ht 160 cm; Wt 63.0 kg
[2020-12-22 12:45] LABS: BASOPHILS % (AUTO) 0.2 % (0-1); EOSINOPHILS % (AUTO) 0.3 % (0-6); HEMATOCRIT 37.4 % (35.0-45.0); HEMOGLOBIN 12.1 g/dl (12.0-16.0); LYMPHOCYTES # (AUTO) 1.5 X10'3 (1.1-4.8); LYMPHOCYTES % (AUTO) 14.9 % (21-51); MEAN CORPUSCULAR HEMOGLOBIN 28.5 PG (27.0-31.0); MEAN CORPUSCULAR HGB CONC 32.3 g/dL (33.0-36.5); MEAN CORPUSCULAR VOLUME 88.4 FL (78-98); MEAN PLATELET VOLUME 7.2 FL (7.4-10.4); MONOCYTES # (AUTO) 0.5 X10'3 (0-0.9); MONOCYTES % (AUTO) 5.1 % (2-12); NEUTROPHILS # (AUTO) 8.2 X10'3 (1.8-7.7); NEUTROPHILS % (AUTO) 79.5 % (42-75); PLATELET COUNT 206 X10'3 (140-440); RED BLOOD COUNT 4.23 X10'6 (4.20-5.60); RED CELL DISTRIBUTION WIDTH 17.8 % (11.5-14.5); WHITE BLOOD COUNT 10.3 X10'3 (4.5-11.0)
[2020-12-22 12:55] LABS: ALANINE AMINOTRANSFERASE 36 U/L (12-78); ALBUMIN 3.5 G/DL (3.4-5.0); ALBUMIN/GLOBULIN RATIO 1.3 (1.1-1.5); ALKALINE PHOSPHATASE 72 IU/L (46-116); ANION GAP 12 (8-16); ASPARTATE AMINO TRANSFERASE 17 U/L (10-37); BILIRUBIN,TOTAL 0.4 MG/DL (0.1-1.0); BLOOD UREA NITROGEN 40 MG/DL (7-18); BUN/CREATININE RATIO 24.5 (6.6-38.0); CALCIUM 8.2 MG/DL (8.5-10.1); CHLORIDE 110 MMOL/L (99-107); CREATININE 1.63 MG/DL (0.40-0.90); GLUCOSE 127 MG/DL (70-104); SODIUM 144 MMOL/L (135-145); TOTAL CARBON DIOXIDE 21.8 MMOL/L (24-32); TOTAL PROTEIN 6.3 G/DL (6.4-8.2); eGFR 31 ML/MIN
[2020-12-22] MEDS ORDERED: EZET10TA48 PO (13:29)
[2020-12-22] MEDS ORDERED: PRED5TAB49 PO (13:29)
[2020-12-22] MEDS ORDERED: PANT40TA54 PO (13:29)
[2020-12-22] MEDS ORDERED: AMLO2.5T5 PO (13:29)
[2020-12-22] MEDS ORDERED: magnesium hydroxide 30ml (MOM) UD suspension PO PRN (13:30)
[2020-12-22] MEDS ORDERED: nitroGLYCERIN 0.4mg SUBLingual tab SL PRN (13:30)
[2020-12-22] MEDS ORDERED: mag hydrox/Alum hydrox/simeth 30ml oral suspension PO PRN (13:30)
[2020-12-22] MEDS ORDERED: ondansetron/PF 4mg/2ml inj IV PRN (13:30)
[2020-12-22] MEDS ORDERED: morphine 2 MG/ML inj. syringe IV PRN ×2 (13:30)
[2020-12-22] MEDS ORDERED: acetaminophen 325mg tablet PO PRN ×2 (13:30)
[2020-12-22] MEDS ORDERED: LORazepam 0.5 MG tablet PO PRN (13:40)
[2020-12-22] MEDS ORDERED: non-formulary drug (Ondansetron (Ondansetron Odt) 1 TAB) PO PRN (13:40)
[2020-12-22] MEDS ORDERED: OXAZEpam 15mg capsule PO PRN (13:40)
[2020-12-22] MEDS: carVEDilol 12.5mg tablet PO SCH ×3 (20:00→20:17)
[2020-12-22] MEDS: acyclovir 200 MG capsule PO SCH (20:15)
[2020-12-22] MEDS: gabapentin 300mg capsule PO SCH (21:12)
[2020-12-23] VITALS (8 sets, daily range): BP systolic 137–166; BP diastolic 57–73
--- NOTE | 2020-12-23 07:16 | NUR ---
PAGE SENT TO DR. GOMES REGARDING PLAN OF CARE FOR PATIENT, SINCE SHE HAS APPOINTMENT IN TOMORROW AND WOULD LIKE TO BE DC TODAY, IF ALL HER TESTS ARE COMPLETED AND STABLE. PAGER ID: [phone] MESSAGE: ER BED #15, P.B. IS WONDERING IF SHE IS HAVING ANY TESTS TODAY. SHE HAS A APPOINTMENT IN [place] TOMORROW, SO SHE IS HOPING TO BE DC TODAY, IF SHE IS STABLE AND ALL HER TESTS ARE COMPLETED. QUESTIONS, CALL GERBER [phone]
[2020-12-23] MEDS ORDERED: nitroGLYCERIN 0.4mg SUBLingual tab SL PRN (07:20)
[2020-12-23] MEDS ORDERED: aminophylline 250mg/10ml inj. IV PRN (07:20)
[2020-12-23] MEDS ORDERED: regadenoson 0.4mg/5ml syringe IV ONE (07:20)
[2020-12-23] MEDS ORDERED: metoprolol tartrate 1mg/ml inj IV PRN (07:20)
[2020-12-23 07:52] LABS: BASOPHILS % (AUTO) 0.1 % (0-1); EOSINOPHILS % (AUTO) 0.7 % (0-6); HEMATOCRIT 38.5 % (35.0-45.0); HEMOGLOBIN 12.4 g/dl (12.0-16.0); LYMPHOCYTES # (AUTO) 2.1 X10'3 (1.1-4.8); LYMPHOCYTES % (AUTO) 30.9 % (21-51); MEAN CORPUSCULAR HEMOGLOBIN 28.5 PG (27.0-31.0); MEAN CORPUSCULAR HGB CONC 32.1 g/dL (33.0-36.5); MEAN CORPUSCULAR VOLUME 88.8 FL (78-98); MEAN PLATELET VOLUME 6.8 FL (7.4-10.4); MONOCYTES # (AUTO) 0.5 X10'3 (0-0.9); MONOCYTES % (AUTO) 7.6 % (2-12); NEUTROPHILS # (AUTO) 4.2 X10'3 (1.8-7.7); NEUTROPHILS % (AUTO) 60.7 % (42-75); PLATELET COUNT 204 X10'3 (140-440); RED BLOOD COUNT 4.33 X10'6 (4.20-5.60); RED CELL DISTRIBUTION WIDTH 17.6 % (11.5-14.5); WHITE BLOOD COUNT 6.9 X10'3 (4.5-11.0)
[2020-12-23] MEDS ORDERED: furosemide 20MG tablet PO SCH (08:00)
[2020-12-23] MEDS ORDERED: predniSONE 5mg tablet PO SCH (08:00)
[2020-12-23] MEDS: carVEDilol 12.5mg tablet PO SCH (08:00)
[2020-12-23] MEDS ORDERED: aspirin 81mg tablet.DR PO SCH (08:00)
[2020-12-23] MEDS ORDERED: clopidogrel 75mg tablet PO SCH (08:00)
[2020-12-23] MEDS ORDERED: non-formulary drug (Aspirin (Aspir 81) 1 TAB) PO SCH (08:00)
[2020-12-23] MEDS ORDERED: LAMIVUDINE 100 MG PO SCH (08:00)
[2020-12-23] MEDS ORDERED: diltiazem CD 120mg capsule (once-daily) PO SCH (08:00)
[2020-12-23] MEDS: acyclovir 200 MG capsule PO SCH (08:00)
[2020-12-23] MEDS ORDERED: ezetimibe 10mg tablet PO SCH (08:00)
[2020-12-23] MEDS ORDERED: atorvastatin 20mg tablet PO SCH (08:00)
[2020-12-23] MEDS: gabapentin 300mg capsule PO SCH (08:00)
[2020-12-23] MEDS ORDERED: pantoprazole 40mg Tablet.DR PO SCH (08:00)
[2020-12-23] MEDS ORDERED: levoTHYROXINE 25mcg tablet PO SCH (08:00)
[2020-12-23] MEDS ORDERED: CITALOpram 10mg tablet PO SCH (08:00)
[2020-12-23] MEDS ORDERED: baclofen 10mg tablet PO SCH (08:00)
[2020-12-23 08:14] LABS: ALBUMIN 3.4 G/DL (3.4-5.0); ANION GAP 11 (8-16); BLOOD UREA NITROGEN 30 MG/DL (7-18); BUN/CREATININE RATIO 22.7 (6.6-38.0); CALCIUM 8.6 MG/DL (8.5-10.1); CHLORIDE 110 MMOL/L (99-107); CHOL/HDL RATIO 4.7 (0.00-4.99); CHOLESTEROL 210 MG/DL (0-200); CREATININE 1.32 MG/DL (0.40-0.90); GLUCOSE 94 MG/DL (70-104); HDL CHOLESTEROL 45 MG/DL (35-60); LDL CHOLESTEROL 123 MG/DL (50-100); SODIUM 146 MMOL/L (135-145); TOTAL CARBON DIOXIDE 25.2 MMOL/L (24-32); TRIGLYCERIDES 226 MG/DL (20-135); eGFR 39 ML/MIN
--- NOTE | 2020-12-23 10:14 | NUR ---
Received report from PATIENCE Austin from ED. Awaiting patient arrival to room 3018B. Patient currently at [facility] and will be up on the floor after appointment.
--- NOTE | 2020-12-23 10:14 | NUR ---
PATIENT IS IN STRESS TEST AND WILL BE TAKEN TO HER INPATIENT ROOM (7948B) WHEN TEST IS COMPLETED. REPORT TO PATIENCE NUÑEZ ON PCU.
--- NOTE | 2020-12-23 10:58 | NUR ---
Patient arrived to room 3018B from [facility] via wheelchair. Patient ambulated from wheelchair to bed. Vital signs are temp. 98.1F, BP 146/65, HR 64, RR 16, 94% on room air, pain 0/10. Bed locked and lowered, nonskid socks on, call light in reach, frequent rounding and in no acute distress.
--- NOTE | 2020-12-23 12:12 | NUR ---
Paged Dr. Zapata regarding patient's lexiscan results. PAGER ID: [phone] MESSAGE: [id number]. Livia Stewart. Patient's lexiscan has resulted. Thank you. Zenaida MORIN x [phone]
--- NOTE | 2020-12-23 12:56 | NUR ---
Patient stable for discharge per MD orders. All discharge instructions reviewed and questions answered appropriately. Belongings collected and sent with the patient. No new prescriptions. Patient will call and make own follow up appointment. PIV discontinued and cannula intact. residential monitor discontinued. Patient wheeled down to the lobby via wheelchair and left via private vehicle.
== END 2020-12-23 12:56 | disposition home or self-care (01) ==
LOC: ER 12:20 → ED HOLD 13:28 → EDBEDREQ 12-23 09:07 → PCU 3S 12-23 10:58
PROVIDERS: ADMIT Internal Medicine; ATTEND Internal Medicine
DX: R07.89 Other chest pain (principal); I24.9 Acute ischemic heart disease, unspecified; E85.9 Amyloidosis, unspecified; I25.10 Atherosclerotic heart disease of native coronary artery without angina pectoris; I25.2 Old myocardial infarction; E03.9 Hypothyroidism, unspecified; E78.00 Pure hypercholesterolemia, unspecified; E78.5 Hyperlipidemia, unspecified; F41.9 Anxiety disorder, unspecified; F32.9 Major depressive disorder, single episode, unspecified; I12.9 Hypertensive chronic kidney disease with stage 1 through stage 4 chronic kidney disease, or unspecified chronic kidney disease; N18.30 Chronic kidney disease, stage 3 unspecified; Z85.118 Personal history of other malignant neoplasm of bronchus and lung; Z95.1 Presence of aortocoronary bypass graft; Z90.710 Acquired absence of both cervix and uterus; Z98.890 Other specified postprocedural states; Z90.89 Acquired absence of other organs; Z87.891 Personal history of nicotine dependence; Z91.013 Allergy to seafood; Z91.041 Radiographic dye allergy status; Z88.8 Allergy status to other drugs, medicaments and biological substances; Z79.82 Long term (current) use of aspirin; Z79.02 Long term (current) use of antithrombotics/antiplatelets; Z79.899 Other long term (current) drug therapy
CPT/HCPCS: 36415; 71045; 78452; 80048; 80053; 80061; 83880; 84484; 85025; 87081; 93005; 93017; 99285; A9500; G0378; J2785

== ENCOUNTER 2021-05-11 12:41 | Emergency (ER) | payer MEDICARE, OTHER ==
[~2021-05-11] VITALS: Ht 160 cm; Wt 62.7 kg
[~2021-05-11 12:41] MED LIST changes: -ALBU6.7H9 INH; +ALBU8.5H17 INH; -ALBU8.5H8 INH; +AMLO2.5T5 PO; -CITA10TA9 PO; +CITA10TA93 PO; +EZET10TA48 PO; -OMEP-50 PO; +PANT40TA54 PO; +PRED5TAB49 PO; -SULF1TAB45 PO
[2021-05-11 13:26] VITALS: BP 135/76
[2021-05-11] MEDS ORDERED: PRED20TA PO (14:45)
[2021-05-11] MEDS ORDERED: ALBU6.7H9 INH (14:45)
== END 2021-05-11 15:01 | disposition home or self-care (01) ==
LOC: ER 12:41
DX: R05.9 Cough, unspecified (principal); Z20.822 Contact with and (suspected) exposure to COVID-19; J45.909 Unspecified asthma, uncomplicated; E85.9 Amyloidosis, unspecified; I25.10 Atherosclerotic heart disease of native coronary artery without angina pectoris; E78.00 Pure hypercholesterolemia, unspecified; I25.2 Old myocardial infarction; K21.9 Gastro-esophageal reflux disease without esophagitis; N18.9 Chronic kidney disease, unspecified; M10.9 Gout, unspecified; Z85.9 Personal history of malignant neoplasm, unspecified; Z87.19 Personal history of other diseases of the digestive system; Z90.5 Acquired absence of kidney; Z90.89 Acquired absence of other organs; Z88.8 Allergy status to other drugs, medicaments and biological substances; Z91.041 Radiographic dye allergy status; Z91.013 Allergy to seafood; Z79.82 Long term (current) use of aspirin; Z79.899 Other long term (current) drug therapy
CPT/HCPCS: 71045; 87635; 99284; C9803

== ENCOUNTER 2021-05-16 11:41 | Emergency (ER) | payer MEDICARE, OTHER ==
[~2021-05-16] VITALS: Ht 160 cm; Wt 58.2 kg
[~2021-05-16 11:41] MED LIST changes: +ALBU6.7H9 INH; +PRED20TA PO
[2021-05-16 12:10] VITALS: BP 136/85
== END 2021-05-16 13:51 | disposition home or self-care (01) ==
LOC: ER 11:42
DX: J41.0 Simple chronic bronchitis (principal); E85.9 Amyloidosis, unspecified; I25.10 Atherosclerotic heart disease of native coronary artery without angina pectoris; E78.00 Pure hypercholesterolemia, unspecified; I25.2 Old myocardial infarction; K21.9 Gastro-esophageal reflux disease without esophagitis; N18.9 Chronic kidney disease, unspecified; M10.9 Gout, unspecified; F41.9 Anxiety disorder, unspecified; F32.9 Major depressive disorder, single episode, unspecified; Z85.9 Personal history of malignant neoplasm, unspecified; Z98.890 Other specified postprocedural states; Z88.8 Allergy status to other drugs, medicaments and biological substances; Z91.013 Allergy to seafood; Z79.2 Long term (current) use of antibiotics; Z79.899 Other long term (current) drug therapy
CPT/HCPCS: 71045; 87502; 87503; 99284

== ENCOUNTER 2021-07-11 10:01 | Emergency (ER) | payer MEDICARE, OTHER ==
[~2021-07-11] VITALS: Ht 160 cm; Wt 61.4 kg
[~2021-07-11 10:01] MED LIST changes: -PRED20TA PO
[2021-07-11 11:23] LABS: ANION GAP 10 (8-16); BLOOD UREA NITROGEN 26 MG/DL (7-18); BUN/CREATININE RATIO 19.4 (6.6-38.0); CALCIUM 8.7 MG/DL (8.5-10.1); CHLORIDE 107 MMOL/L (99-107); CREATININE 1.34 MG/DL (0.40-0.90); GLUCOSE 178 MG/DL (70-104); POTASSIUM 4.7 MMOL/L (3.5-5.1); SODIUM 142 MMOL/L (135-145); TOTAL CARBON DIOXIDE 25.2 MMOL/L (24-32); eGFR 39 ML/MIN
[2021-07-11] MEDS ORDERED: SOTROVIMAB 500mg injection 500 MG in normal saline 100ml IV soln 100 ML IV ONE (14:20)
[2021-07-11 16:22] VITALS: BP 121/46
== END 2021-07-11 16:26 | disposition home or self-care (01) ==
LOC: ER 10:02
DX: U07.1 COVID-19 (principal); R05.9 Cough, unspecified; I25.10 Atherosclerotic heart disease of native coronary artery without angina pectoris; E78.00 Pure hypercholesterolemia, unspecified; I25.2 Old myocardial infarction; K21.9 Gastro-esophageal reflux disease without esophagitis; N18.9 Chronic kidney disease, unspecified; M10.9 Gout, unspecified; F41.9 Anxiety disorder, unspecified; F32.A Depression, unspecified; Z85.9 Personal history of malignant neoplasm, unspecified; Z98.890 Other specified postprocedural states; Z88.8 Allergy status to other drugs, medicaments and biological substances; Z91.013 Allergy to seafood; Z79.2 Long term (current) use of antibiotics; Z79.899 Other long term (current) drug therapy
CPT/HCPCS: 36415; 80048; 99284; J3490; M0247; Q0247